=== PATIENT | female | born 1930 | race Caucasian/White ===

== ENCOUNTER → 2016-07-21 | Outpatient (CLI) | payer MEDICARE | END | disposition home or self-care (01) | LOC: PCVCIMAG 13:05 | PROVIDERS: ATTEND Internal Medicine Cardiovascular Disease | DX: I48.92 Unspecified atrial flutter (principal); I10 Essential (primary) hypertension; E78.00 Pure hypercholesterolemia, unspecified; I35.0 Nonrheumatic aortic (valve) stenosis; I51.7 Cardiomegaly; I25.10 Atherosclerotic heart disease of native coronary artery without angina pectoris; R00.1 Bradycardia, unspecified; I34.0 Nonrheumatic mitral (valve) insufficiency; Z95.1 Presence of aortocoronary bypass graft | CPT/HCPCS: 80061; 93005; 93306; G0463 ==

== ENCOUNTER → 2017-02-28 | Outpatient (CLI) | payer MEDICARE | END | disposition home or self-care (01) | LOC: PCVCCLINIC 13:04 | PROVIDERS: ATTEND Internal Medicine Cardiovascular Disease | DX: I25.810 Atherosclerosis of coronary artery bypass graft(s) without angina pectoris (principal); I10 Essential (primary) hypertension; I35.0 Nonrheumatic aortic (valve) stenosis; I34.0 Nonrheumatic mitral (valve) insufficiency; E78.00 Pure hypercholesterolemia, unspecified; I48.0 Paroxysmal atrial fibrillation; I77.9 Disorder of arteries and arterioles, unspecified; R94.31 Abnormal electrocardiogram [ECG] [EKG]; Z79.899 Other long term (current) drug therapy | CPT/HCPCS: 80061; 93005; G0463 ==

== ENCOUNTER → 2017-12-28 | Outpatient (CLI) | payer MEDICARE ==
--- NOTE | 2017-12-28 15:00 | PCVCIMAG ---
APPROVED REPORT Study performed: 12/28/2017 13:09:53 EXAM: Limited 2D, Doppler, and color-flow Echocardiogram Patient Location: Echo lab Status: routine BSA: 1.46 HR: 97 bpmBP: 122/82 mmHg Rhythm: Atrial Fibrillation Other Information Study Quality: Adequate Indications Atrial Fibrillation CAD Moderate aortic stenosis 2D Dimensions IVSd: 14.58 (7-11mm)LVOT Diam: 21.83 (18-24mm) LVDd: 56.69 mm PWd: 11.75 (7-11mm)Ascending Ao: 35.87 (22-36mm) LVDs: 53.80 (25-40mm) Left Atrium: 47.58 (27-40mm) Aortic Root: 31.02 mm LV Single Plane 4CH: 23.02 % LV Single Plane 2CH: 25.36 % Biplane EF: 24.1 % Volumes Left Atrial Volume (Systole) Single Plane 4CH: 82.54 mLSingle Plane 2CH: 133.13 mL LA ESV Index: 73.00 mL/m2 Aortic Valve AoV Peak Latrell.: 1.86 m/s AO Peak Gr.: 14.16 mmHgLVOT Max P.78 mmHg AO Mean Gr.: 6.64 mmHgLVOT Mean P.40 mmHg AO V2 Mean: 1.15 m/sLVOT Max V: 0.44 m/s AO V2 VTI: 27.42 cmLVOT Mean V: 0.29 m/s WENDY (VTI): 0.93 [id number] V1 VTI: 6.82 cm WENDY Vmax: 0.88 cm2 SV (LVOT): 25.52 mL Tricuspid Valve TR Peak Latrell.: 2.82 m/s TR Peak Gr.: 32.13 mmHg Left Ventricle Left ventricle is borderline dilated. There is normal LV segmental wall motion. Mild to moderate concentric left ventricular hypertrophy. Left ventricular ejection fraction is severely decreased globally. LVEF is 24%. This study is not technically sufficient to allow evaluation of the LV diastolic function. Right Ventricle Right ventricle is dilated. The right ventricular systolic function is normal. Atria Left atrium is severely dilated. Right atrium is severely dilated. Aortic Valve The aortic valve is severely calcified. No aortic regurgitation is present. There is severe valvular aortic stenosis. Calculated aortic valve area is .9 cm2 with maximum pressure gradient of 14 mmHg and mean pressure gradient of 7 mmHg. Mitral Valve The mitral valve is normal in structure. Moderate mitral regurgitation. No evidence of mitral valve stenosis. Tricuspid Valve The tricuspid valve is normal in structure. Moderate to severe tricuspid regurgitation with PAP of 42 mmHg. Pulmonic Valve The pulmonary valve is normal in structure. There is no pulmonic valvular regurgitation. Great Vessels The aortic root is normal in size. IVC is normal in size and collapses with >50% inspiration Pericardium There is no pericardial effusion. Large pleural effusion noted. <Conclusion> Left ventricle is borderline dilated. Mild to moderate concentric left ventricular hypertrophy. Left ventricular ejection fraction is severely decreased globally. LVEF is 24%. Right ventricle is dilated. The right ventricular systolic function is normal. Left atrium is severely dilated. Right atrium is severely dilated. The aortic valve is severely calcified. There is severe valvular aortic stenosis. Calculated aortic valve area is .9 cm2 with maximum pressure gradient of 14 mmHg and mean pressure gradient of 7 mmHg. Moderate mitral regurgitation. Moderate to severe tricuspid regurgitation with PAP of 42 mmHg. The aortic root is normal in size. There is no pericardial effusion. Large pleural effusion noted.
== END | disposition home or self-care (01) ==
LOC: PCVCIMAG 13:00
PROVIDERS: ATTEND Internal Medicine Cardiovascular Disease
DX: I50.41 Acute combined systolic (congestive) and diastolic (congestive) heart failure (principal); I48.2 Chronic atrial fibrillation; I35.0 Nonrheumatic aortic (valve) stenosis; J90 Pleural effusion, not elsewhere classified; I25.10 Atherosclerotic heart disease of native coronary artery without angina pectoris; R06.02 Shortness of breath; I42.9 Cardiomyopathy, unspecified; Z95.1 Presence of aortocoronary bypass graft
CPT/HCPCS: 80061; 93005; 93308; G0463

== ENCOUNTER → 2018-02-07 | Outpatient (CLI) | payer MEDICARE | END | disposition home or self-care (01) | LOC: PCVCCLINIC 11:00 | PROVIDERS: ATTEND Internal Medicine Cardiovascular Disease | DX: I11.0 Hypertensive heart disease with heart failure (principal); I50.43 Acute on chronic combined systolic (congestive) and diastolic (congestive) heart failure; R94.31 Abnormal electrocardiogram [ECG] [EKG]; I25.10 Atherosclerotic heart disease of native coronary artery without angina pectoris; I07.1 Rheumatic tricuspid insufficiency; I34.0 Nonrheumatic mitral (valve) insufficiency; I35.0 Nonrheumatic aortic (valve) stenosis; I48.2 Chronic atrial fibrillation; Z72.89 Other problems related to lifestyle; Z88.8 Allergy status to other drugs, medicaments and biological substances; Z79.899 Other long term (current) drug therapy | CPT/HCPCS: 80061; 93005; G0463 ==